=== PATIENT | male | born 1950 | race African-American/Black ===

== ENCOUNTER 2019-01-15 12:01 | Emergency (ER) | payer MEDICARE, MEDICAID | END 2019-01-15 12:31 | disposition home or self-care (01) | LOC: MADERS 12:01 | DX: M25.531 Pain in right wrist (principal); M54.5 Low back pain; I10 Essential (primary) hypertension; K21.9 Gastro-esophageal reflux disease without esophagitis; F17.210 Nicotine dependence, cigarettes, uncomplicated; Z71.6 Tobacco abuse counseling | CPT/HCPCS: 99281 ==

== ENCOUNTER 2019-04-11 11:26 | Emergency (ER) | payer MEDICARE, MEDICAID ==
[2019-04-11] MEDS ORDERED: Ketorolac Tromethamine 60 MG/2 ML VIAL ONE (12:08)
== END 2019-04-11 12:15 | disposition home or self-care (01) ==
LOC: MADERS 11:26
DX: S39.82XA Other specified injuries of lower back, initial encounter (principal); M19.90 Unspecified osteoarthritis, unspecified site; I10 Essential (primary) hypertension; K21.9 Gastro-esophageal reflux disease without esophagitis; E78.5 Hyperlipidemia, unspecified; F17.210 Nicotine dependence, cigarettes, uncomplicated; Z71.6 Tobacco abuse counseling; Z79.899 Other long term (current) drug therapy; X50.1XXA Overexertion from prolonged static or awkward postures, initial encounter
CPT/HCPCS: 96372; 99406; J1885

== ENCOUNTER 2020-05-03 19:15 | Emergency (ER) | payer MEDICARE, MEDICAID | END 2020-05-03 20:10 | disposition home or self-care (01) | LOC: MADERS 19:15 | DX: M79.605 Pain in left leg (principal); K21.9 Gastro-esophageal reflux disease without esophagitis; I10 Essential (primary) hypertension; E78.5 Hyperlipidemia, unspecified; F17.210 Nicotine dependence, cigarettes, uncomplicated; Z79.82 Long term (current) use of aspirin; Z79.01 Long term (current) use of anticoagulants; Z79.899 Other long term (current) drug therapy ==

== ENCOUNTER 2021-12-08 20:09 | Emergency (ER) | payer MEDICAID, MEDICARE | END 2021-12-08 20:55 | disposition short-term general hospital (02) | LOC: MADERS 20:09 | DX: S80.12XA Contusion of left lower leg, initial encounter (principal); I10 Essential (primary) hypertension; F17.210 Nicotine dependence, cigarettes, uncomplicated; K21.9 Gastro-esophageal reflux disease without esophagitis; Z79.899 Other long term (current) drug therapy; Z79.82 Long term (current) use of aspirin; E78.5 Hyperlipidemia, unspecified; W22.8XXA Striking against or struck by other objects, initial encounter | CPT/HCPCS: 99284 ==

== ENCOUNTER 2022-05-23 16:18 | Emergency (ER) | payer MEDICARE, MEDICAID ==
[2022-05-23] MEDS ORDERED: Erythromycin Base 0.5% Ophth Oint 3.5 gm Tube ONE (18:07)
== END 2022-05-23 18:17 | disposition home or self-care (01) ==
LOC: MADERS 16:18
DX: H10.9 Unspecified conjunctivitis (principal); I10 Essential (primary) hypertension; E78.5 Hyperlipidemia, unspecified; F17.210 Nicotine dependence, cigarettes, uncomplicated; Z86.73 Personal history of transient ischemic attack (TIA), and cerebral infarction without residual deficits
CPT/HCPCS: 99282

== ENCOUNTER 2023-02-23 08:50 | Emergency (ER) | payer MEDICARE, MEDICAID ==
[2023-02-23] MEDS ORDERED: predniSONE 20 MG TAB ONE (09:06)
[2023-02-23] MEDS ORDERED: Ipratropium/Albuterol 3 ML NEB ONE (09:06)
[2023-02-23] MEDS ORDERED: predniSONE 10 MG TAB ONE (09:06)
== END 2023-02-23 09:56 | disposition home or self-care (01) ==
LOC: MADERS 08:50
DX: R05.9 Cough, unspecified (principal); R91.1 Solitary pulmonary nodule; R09.1 Pleurisy; E78.5 Hyperlipidemia, unspecified; I10 Essential (primary) hypertension; F17.210 Nicotine dependence, cigarettes, uncomplicated; Z79.899 Other long term (current) drug therapy; Z79.82 Long term (current) use of aspirin
CPT/HCPCS: 71045; 93005; J7512; J7620

== ENCOUNTER 2023-05-19 05:03 | Emergency (ER) | payer MEDICARE, MEDICAID ==
[2023-05-19] MEDS ORDERED: HYDROcodone/Acetaminophen 5/325 mg Tablet ONE (05:49)
[2023-05-19] MEDS ORDERED: Cyclobenzaprine 10 MG TAB ONE (05:58)
[2023-05-19 06:05] LABS: Bilirubin Negative (Negative); Blood, Urine Negative (Negative); Clarity Clear (Clear); Glucose, Urine (Dipstick) Negative (Negative); Ketone, Urine Negative (Negative); Leukocyte Negative (Negative); Nitrite Negative (Negative); Protein, Urine (Dipstick) Negative (Neg-Trace); Specific Gravity, Urine 1.025 (1.005-1.030); pH, Urine 6.5 (5.0-9.0)
[2023-05-19 06:17] LABS: Bacteria/HPF Rare-Few HPF (None Seen); CAUTI Indications for Culture Pelvic or flank pain; RBC/HPF 0-3 HPF (0-3); Squamous Epithelial 0-3 HPF (0-3); Urine Culture Reflex No No; WBC/HPF 0-3 HPF (0-3)
[2023-05-19] MEDS ORDERED: Lidocaine 4% Patch ONE (06:32)
== END 2023-05-19 06:39 | disposition home or self-care (01) ==
LOC: MADERS 05:03
DX: S29.012A Strain of muscle and tendon of back wall of thorax, initial encounter (principal); E78.00 Pure hypercholesterolemia, unspecified; I10 Essential (primary) hypertension; J44.9 Chronic obstructive pulmonary disease, unspecified; F17.220 Nicotine dependence, chewing tobacco, uncomplicated; Z79.899 Other long term (current) drug therapy; Z79.82 Long term (current) use of aspirin; X50.0XXA Overexertion from strenuous movement or load, initial encounter
CPT/HCPCS: 81001

== ENCOUNTER 2024-06-21 11:53 | Emergency (ER) | payer MEDICARE, MEDICAID ==
[~2024-06-21 11:53] MED LIST: Iopamidol 370 76% 100 ML VIAL ONE
[2024-06-21 12:33] LABS: #Basophils 0.1 thou/uL (0.0-0.2); #Eosinophils 0.2 thou/uL (0.0-0.7); #Lymphocytes 1.4 thou/uL (1.20-3.40); #Monocytes 0.3 thou/uL (0.11-0.59); #Neutrophils 2.2 thou/uL (1.40-6.50); %Basophils 2.2 % (0.0-1.0); %Eosinophils 4.6 % (0.0-10.0); %Lymphocytes 33.4 % (21.0-51.0); %Monocytes 6.8 % (0.0-10.0); Hematocrit 47.2 % (42.0-52.0); Mean Corpuscular HGB CONC 31.8 g/dL (32.0-36.0); Mean Corpuscular Hemoglobin 32.1 pg (27.0-31.0); Mean Corpuscular Volume 100.9 fl (78.0-98.0); Mean Platelet Volume 7.3 fL (7.4-10.4); Platelet Count 277 10x3/uL (130-400); RBC Distribution Width 12.8 % (11.5-14.5); Red Blood Cell (RBC) Count 4.68 mill/uL (4.70-6.10); White Blood Cell (WBC) Count 4.2 10x3/uL (4.8-10.8)
[2024-06-21 13:07] LABS: ALT (SGPT) 11 U/L (8-55); AST (SGOT) 19 U/L (5-34); Albumin 3.9 g/dL (3.4-4.8); Alkaline Phosphatase 86 U/L (40-110); Anion Gap 19 mmol/L (10-20); BUN (Urea Nitrogen) 5 mg/dL (8.4-25.7); Bilirubin, Total 0.5 mg/dL (0.2-1.2); Calc. Creatinine Clearance 0 mL/min (70-130); Calcium 9.6 mg/dL (7.8-10.44); Carbon Dioxide 20 mmol/L (23-31); Chloride 105 mmol/L (98-107); Estimated GFR 92; Globulin 3.6 g/dL (2.4-3.5); Glucose 93 mg/dL (83-110); Lipase 18 U/L (8-78); Potassium 4.3 mmol/L (3.5-5.1); Protein, Total 7.5 g/dL (5.8-8.1); Sodium 140 mmol/L (136-145)
[2024-06-21] MEDS ORDERED: Lidocaine 4% Patch ONE (13:11)
[2024-06-21] MEDS ORDERED: Ketorolac Tromethamine 30 MG (1 mL) VIAL ONE (13:11)
[2024-06-21 13:38] LABS: Bilirubin Negative (Negative); Blood, Urine Negative (Negative); Clarity Clear (Clear); Glucose, Urine (Dipstick) Negative (Negative); Ketone, Urine Negative (Negative); Leukocyte Negative (Negative); Nitrite Negative (Negative); Protein, Urine (Dipstick) Negative (Neg-Trace); Specific Gravity, Urine 1.015 (1.005-1.030)
[2024-06-21 14:02] LABS: Bacteria/HPF Rare-Few HPF (None Seen); CAUTI Indications for Culture Pelvic or flank pain; RBC/HPF 0-3 HPF (0-3); Squamous Epithelial 0-3 HPF (0-3); Urine Culture Reflex No No; WBC/HPF None Seen HPF (0-3)
== END 2024-06-21 14:21 | disposition home or self-care (01) ==
LOC: MADERS 11:53
DX: S20.211A Contusion of right front wall of thorax, initial encounter (principal); K76.89 Other specified diseases of liver; N28.1 Cyst of kidney, acquired; I72.3 Aneurysm of iliac artery; I10 Essential (primary) hypertension; F17.220 Nicotine dependence, chewing tobacco, uncomplicated; W00.0XXA Fall on same level due to ice and snow, initial encounter
CPT/HCPCS: 71101; 74177; 80053; 81001; 83605; 83690; 85025; 94760; 96374; 99284; J1885; Q9967